=== PATIENT | female | born 1990 | race Caucasian/White ===

== ENCOUNTER 2020-05-28 13:51 | Emergency (ER) | payer OTHER ==
[~2020-05-28] VITALS: Ht 157.5 cm; Wt 86.2 kg
== END 2020-05-28 17:14 | disposition home or self-care (01) ==
LOC: FSED 14:30
DX: S82.62XA Displaced fracture of lateral malleolus of left fibula, initial encounter for closed fracture (principal); W00.0XXA Fall on same level due to ice and snow, initial encounter; Y93.01 Activity, walking, marching and hiking
CPT/HCPCS: 99282